=== PATIENT | male | born 1940 | race Caucasian/White ===

== ENCOUNTER 2019-05-16 16:51 | Emergency (ER) | payer MEDICARE ==
--- NOTE | 2019-05-16 17:32 | CT ---
CT BRAIN NONCONTRAST: DATE: 05/16/2019 HISTORY: 78-year-old male status post acute head trauma from fall FINDINGS: There is no evidence of acute intra-axial or extra-axial hemorrhage. There is no midline shift or any other mass effect. There is no extra-axial fluid collection. There is no evidence of obstructive hydrocephalus. Calvarium is intact. There is diffuse brain parenchymal volume loss. There are low att enuation areas in the white matter. These are nonspecific, but in a patient of this age, they are probably chronic ischemic white matter changes due to microvascular atherosclerosis. There are tiny o ld lacunar infarctions in the jolanta, bilateral basal ganglia, conteh radiata, and centrum semiovale. IMPRESSION: 1) No acute intracranial findings. 2) involutional changes and chronic ischemic white matter changes. 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
--- NOTE | 2019-05-16 17:32 | RAD ---
LEFT HAND: 05/16/19 Four views. HISTORY: Fall with injury to hand. There is a transverse displaced fracture involving the proximal aspect of the proximal phalanx of the fourth finger. Distal fragment shows ventral displacement and dorsa angulation. There is also an obliquely oriented nondisplaced fracture involving the proximal phalanx of the fifth finger. Prominent degenerative changes are noted at the first carpometacarpal joint, MCP joints, and IP joint s. IMPRESSION: Fractures of the proximal phalanx of the fourth and fifth fingers. POS: AGW
[2019-05-16] MEDS ORDERED: Bupivacaine 0.5% 10 ML VIAL ONE (18:02)
[2019-05-16] MEDS ORDERED: Lidocaine 1% 20 ML MDV ONE (18:02)
--- NOTE | 2019-05-16 19:14 | RAD ---
FINGERS LEFT HAND THREE VIEWS: 05/16/19 INDICATIONS: Post reduction. FINDINGS/IMPRESSION: Splint material now obscures the fourth and fifth digits. The fracture of the proximal phalanx of the fourth digit continues to show mild dorsal angulation of the distal fragment and mild central displa cement. Minimal displacement at the proximal phalanx of the fifth digit. Fourth and fifth digits ev aluated in three views. POS: AGW
== END 2019-05-16 19:15 | disposition home or self-care (01) ==
LOC: SCSER 16:51
DX: S62.615A Displaced fracture of proximal phalanx of left ring finger, initial encounter for closed fracture (principal); S62.617A Displaced fracture of proximal phalanx of left little finger, initial encounter for closed fracture; S00.01XA Abrasion of scalp, initial encounter; Z79.899 Other long term (current) drug therapy; W18.09XA Striking against other object with subsequent fall, initial encounter
CPT/HCPCS: 29130; 70450; J2001; J3490